=== PATIENT | female | born 1995 | race American Indian/Alaskan Native ===

== ENCOUNTER 2019-07-27 15:58 | Observation (INO) | payer OTHER, MEDICAID ==
[2019-07-27] MEDS ORDERED: metroNIDAZOLE 500 MG TAB PO SCH (18:00)
[2019-07-27] MEDS ORDERED: metroNIDAZOLE 500 MG TAB PO ONE (18:55)
--- NOTE | 2019-07-27 19:30 | Ultrasound Report ---
ULTRASOUND OBSTETRIC INDICATION / CLINICAL INFORMATION: UNSURE OF DATES, FOR DATES.. Clinical Gestational Age (GA): Unknown TECHNIQUE: Transabdominal. COMPARISON: None available. FINDINGS: There is a single intrauterine . Burroughs intrauterine with fetus in cephalic pos ition. Heart rate is 160 bpm. BREATHING MOVEMENT = 2 GROSS BODY MOVEMENT = 2 TONE = 2 QUALITATIVE AMNIOTIC FLUID VOLUME = 2 TOTAL BIOPHYSICAL SCORE = 8/8 Amniotic fluid index 13.6 cm. Placenta is posterior and free of the os. Cervical length 2.8 cm. Biparietal Diameter = 7.2 cm = 28 weeks, 5 day(s). Head Circumference = 28.1 cm = 30 weeks, 6 day(s). Abdominal Circumference = 26.0 cm = 30 weeks, 1 day(s). Femur Length = 5.8 cm = 30 weeks, 3 day(s). Average Ultrasound Age (AUA) = 30 weeks, 0 day(s). Estimated Weight in grams (if calculated): 1522 Estimated Weight Growth Percentile (if calculated): IMPRESSION: 1. Single, living intrauterine with estimated sonographic age of 30 weeks, 0 day(s). 2. No significant sonographic abnormality. Signer Name: Randall Valdes MD Signed: 07/27/2019 7:25 PM Workstation Name: [id number]
[2019-07-27] MEDS ORDERED: BETAMET ACET/BETAMET NA PH 6 MG/ML INJ 5 ML MDV IM ONE (20:07)
[2019-07-27] MEDS: BETAMET ACET/BETAMET NA PH 6 MG/ML INJ 5 ML MDV IM SCH (20:09)
[2019-07-28] MEDS ORDERED: BETAMET ACET/BETAMET NA PH 6 MG/ML INJ 5 ML MDV IM SCH (10:00)
--- NOTE | 2019-07-28 11:51 | History and Physical Report ---
History of Present Illness Date of examination: 07/28/19 Date of admission: 07/27/19 20:18 [facility]. History of present illness: [facility]. States she has been getting care at [facility] (doesn't know the name of her doctor or practice). States she may be confused about her due date of 09/03/2019. Denies CTX, LOF, and VB; Admits to increased vaginal discharge. 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 Family/Genetic History: heart disease (mother) - Obstetrical History Expected Date of Delivery: 09/03/19 Actual Gestation: 34 Week(s) 5 Day(s) : 6 Para: 4 Hx # Term Pregnancies: 3 Number of Pregnancies: 1 Induced : 1 Number of Living Children: 4 #1 Infant Gender: Male year: 2,012 Birthweight: 2.466 kg Method of Delivery: Vaginal Gestational age at delivery: 40 Complications: none #2 Infant Gender: Male year: 2,015 Birthweight: 2.381 kg Method of Delivery: Vaginal Gestational age at delivery: 38 Complications: none #3 Infant Gender: Female year: 2,018 Birthweight: 2.296 kg Method of Delivery: Vaginal Gestational age at delivery: 38 Complications: none #4 Gender: Female year: 2,019 Birthweight: 1.843 kg Method of Delivery: Vaginal Gestational age at delivery: 33 Medications and Allergies Allergies Allergy/AdvReac Type Severity Reaction Status Date / Time No Known Allergies Allergy Unverified 04/25/13 18:28 Home Medications Medication Instructions Recorded Confirmed Last Taken Type Amoxicillin/K Clav Tab [Augmentin 1 tab PO BID #20 tablet 04/25/13 Unknown Rx 875MG] HYDROcodone/ACETAMINOPHEN [Bath 1 each PO Q6HR #20 tablet 04/25/13 Unknown Rx 5/325 Tablet] Ibuprofen [Motrin] 600 mg PO Q8H PRN #60 tablet 04/25/13 Unknown Rx Vit/Iron Fum/Folic AC 1 each PO QDAY #90 tablet 10/06/13 Unknown Rx [ Vitamin Tablet] Promethazine [Phenergan] 25 mg PO Q6H PRN #30 tablet 10/06/13 Unknown Rx Active Meds: Active Medications Betamethasone Acet/Betameth SodPhos (Celestone Soluspan) 12 mg IM Q24H SHANI Stop: 07/29/19 19:13 Last Admin: 07/27/19 20:09 Dose: 12 mg Documented by: Review of Systems All systems: negative - Vital Signs Vital signs: Vital Signs Temp Pulse Resp BP Pulse Ox 97.8 F 101 H 16 118/74 100 07/27/19 16:27 07/27/19 16:27 07/27/19 16:27 07/27/19 16:27 07/27/19 16:27 Temp Pulse Resp BP Pulse Ox 98.1 F 72 18 110/61 98 07/28/19 04:30 07/28/19 07:48 07/28/19 07:48 07/28/19 07:48 07/27/19 18:59 - Physical Exam Breasts: Positive: normal Cardiovascular: Regular rate Lungs: Positive: Clear to auscultation, Normal air movement Abdomen: Positive: normal appearance, soft, normal bowel sounds Genitourinary (Female): Positive: normal external genitalia, normal perenium Vagina: Positive: normal moisture Uterus: Positive: enlarged Anus/Rectum: Positive: normal perianal skin Extremities: Positive: normal - Obstetrical FHR: category 1 Uterine Contraction Monitor Mode: External Cervical Dilatation: 2 (vtx, Intact) Cervical Effacement Percentage: 40 station: -4 Uterine Contraction Pattern: Absent Uterine Tone Measurement Phase: Resting Results All other labs normal. Assessment and Plan A: IUP @ 34 5/7 Weeks Dating Discrepancy (30 weeks by US on 07/26 @ [facility]) Cervical Dilatation Bacterial Vagnosis Hx of Delivery P: Admit to L&D per Routine Orders 23 hour observation Regular Diet Request any US reports or [place] [facility] [place] Metronidazole 2G PO x 1 dose OBUS Betamethasome Series D/C back to [place] [facility] [facility] after steriods complete
[2019-07-28 19:34] VITALS: BP 126/74
[2019-07-28] MEDS: BETAMET ACET/BETAMET NA PH 6 MG/ML INJ 5 ML MDV IM SCH (21:23)
== END 2019-07-29 01:45 ==
LOC: TRG 15:58 → APU 16:02 → TRG 20:18 → LD 23:33
PROVIDERS: ADMIT Obstetrics & Gynecology; ATTEND Obstetrics & Gynecology
DX: O34.33 Maternal care for cervical incompetence, third trimester (principal); O23.593 Infection of other part of genital tract in pregnancy, third trimester; B96.89 Other specified bacterial agents as the cause of diseases classified elsewhere; O09.293 Supervision of pregnancy with other poor reproductive or obstetric history, third trimester; Z3A.34 34 weeks gestation of pregnancy
CPT/HCPCS: 76816; 76819; 96372; G0378; J0702